=== PATIENT | female | born 1990 | race Two or more races ===

== ENCOUNTER 2021-02-14 06:00 | Day surgery (SDC) | payer OTHER ==
[2021-02-14] MEDS ORDERED: DICLOFENAC SODI50 MG PO (11:28)
== END 2021-02-14 15:40 | disposition home or self-care (01) ==
LOC: CIR.AMB 06:00
PROVIDERS: ATTEND Obstetrics & Gynecology
DX: Z30.2 Encounter for sterilization (principal); Z20.822 Contact with and (suspected) exposure to COVID-19